=== PATIENT | female | born 1970 | race Caucasian/White ===

== ENCOUNTER 2022-02-19 15:00 | Inpatient (IN) | payer BC ==
[~2022-02-19] VITALS: Ht 172 cm; Wt 113.6 kg
[2022-02-19] MEDS ORDERED: ASPIRIN 81 MG CHEW (CHILDREN'S ASA) ONE (15:21)
[2022-02-19] MEDS ORDERED: dilTIAZem DRIP PRE-MIX 125 ML IV ONE (15:23)
[2022-02-19] MEDS ORDERED: meTOprolol 5 MG/5 ML (LOPRESSOR) VIAL ONE ×2 (15:24→15:32)
[2022-02-19] MEDS ORDERED: meTOprolol 5 MG/5 ML (LOPRESSOR) VIAL IV ONE ×2 (15:30→16:45)
[2022-02-19] MEDS ORDERED: dilTIAZem DRIP PRE-MIX 125 ML IV SCH (15:30)
[2022-02-19] MEDS ORDERED: ASPIRIN 81 MG CHEW (CHILDREN'S ASA) PO ONE (15:30)
[2022-02-19 15:41] LABS: ALBUMIN 4.3 GM/DL (3.2-4.5); POTASSIUM 3.8 MMOL/L (3.6-5.0)
[2022-02-19 15:42] LABS: CALCIUM 9.9 MG/DL (8.5-10.1)
[2022-02-19 15:45] LABS: BILIRUBIN,TOTAL 0.2 MG/DL (0.1-1.0)
[2022-02-19] MEDS ORDERED: APIXABAN 5 MG (ELIQUIS) TABLET PO ONE (15:45)
[2022-02-19 15:47] LABS: BASOPHILS # (AUTO) 0.1 10^3/uL (0.0-0.1); BASOPHILS % (AUTO) 1 % (0-10); CREATININE SERUM 0.89 MG/DL (0.60-1.30); EOSINOPHILS # (AUTO) 0.4 10^3/uL (0.0-0.3); EOSINOPHILS % (AUTO) 3 % (0-10); HEMATOCRIT 47 % (35-52); INR 0.8 (0.8-1.4); LYMPHOCYTES # (AUTO) 3.3 X 10^3 (1.0-4.0); LYMPHOCYTES % (AUTO) 31 % (12-44); MEAN CORPUSCULAR HEMOGLOBIN 29 pg (25-34); MEAN CORPUSCULAR HGB CONC 34 g/dL (32-36); MEAN CORPUSCULAR VOLUME 85 fL (80-99); MEAN PLATELET VOLUME 11.7 fL (9.0-12.2); MONOCYTES # (AUTO) 0.7 X 10^3 (0.0-1.0); MONOCYTES % (AUTO) 7 % (0-12); NEUTROPHILS # (AUTO) 6.1 X 10^3 (1.8-7.8); NEUTROPHILS % (AUTO) 58 % (42-75); PLATELET COUNT 381 10^3/uL (130-400); PROTHROMBIN TIME PATIENT 11.8 SEC (12.2-14.7); WHITE BLOOD COUNT 10.6 10^3/uL (4.3-11.0)
[2022-02-19 15:49] LABS: MAGNESIUM 1.8 MG/DL (1.6-2.4)
--- NOTE | 2022-02-19 15:55 | ED Chest Pain ---
General Stated Complaint: HX AFIB/NAUSEA/LIGHTHEADED Source: patient Exam Limitations: no limitations History of Present Illness Date Seen by Provider: February 19, 2022 Time Seen by Provider: 15:12 Initial Comments Here with report of fast heart rate and shortness of breath with feeling of palpitation and lightheadedness over the last 1 and half to 2 hours. Patient has history of fast heart rate apparently previously. She did have to wear Holter monitor for a few weeks. She was started on metoprolol at that time and the Holter monitor caught a few events but it appeared the metoprolol was working okay. She missed 1 dose of her metoprolol yesterday. She took it today. She has had had echocardiogram and sleep study with results pending in [place], [place]. She follows with Dr. Mora there. She does smoke but denies alcohol or drugs. She has had some nausea and dry mouth with this but denies vomiting, sweating or significant weakness. She has never had sustained event like this before. She states that she has been eating when things happened and when she went to her son's house. She and her rested and waited there for a little bit but things became sustained and she started getting short of breath so ultimately elected to come to the emergency department. On arrival here, heart rate 140s to 250s or higher on monitor. Timing/Duration: 1-3 hours, constant, getting worse Severity/Quality: moderate Location: central (Palpitations) Radiation: no radiation Prior CP/Workup: echocardiography Modifying Factors: improves with other (No aggravating or relieving factors) ASA po WELDING TESTER: No NTG SL WELDING TESTER: No Associated Symptoms: No abdominal pain, No back pain, No diaphoresis, No dizziness, No fever/chills; nausea/vomiting, shortness of breath; No weakness Allergies and Home Medications Allergies Coded Allergies: No Known Drug Allergies (Unverified , 02/19/22) Patient Home Medication List Home Medication List Reviewed: Yes (Toprol-XL 25 mg p.o. [place]) Review of Systems Review of Systems Constitutional: No chills, No fever EENTM: No Symptoms Reported Respiratory: Denies Cough; Shortness of Air Cardiovascular: Chest Pain, Irregular Heart Rate, Palpitations Gastrointestinal: Denies Abdominal Pain; Nausea; Denies Vomiting Genitourinary: No Symptoms Reported Musculoskeletal: no symptoms reported Skin: no symptoms reported Psychiatric/Neurological: Denies Headache, Denies Weakness All Other Systems Reviewed Negative Unless Noted: Yes Past Zwyenlb-[id number]-[id number] Hx Patient Social History Tobacco Use?: Yes Tobacco type used: Cigarettes Use of E-Cig and/or Vaping dev: No Substance use?: No Alcohol Use?: No Past Medical History Surgeries: Yes Orthopedic Respiratory: No Cardiac: Yes Irregular Heartbeat Neurological: No Gastrointestinal: Yes Family Medical History Reviewed and Corrections made Heart Disease Physical Exam Vital Signs Vital Signs - First Documented 02/19/22 15:05 Temp 36.6 Pulse 161 Resp 20 B/P (MAP) 175/89 (117) Pulse Ox 99 O2 Delivery Room Air Capillary Refill : Height, Weight, BMI Height: '" Weight: lbs. oz. kg; BMI Method: General Appearance: WD/WN, Moderate Distress HEENT: PERRL/EOMI, Pharynx Normal Neck: Non Tender, Supple Respiratory: Lungs Clear, Normal Breath Sounds Cardiovascular: No Murmur, Irregularly Irregular, Tachycardia (Rates up to 250 and above noted on monitor) Gastrointestinal: Non Tender, Soft Extremity: Normal Range of Motion, Non Tender Neurologic/Psychiatric: Alert, Oriented x3 Skin: Normal Color, Warm/Dry Progress/Results/Core Measures Results/Orders Lab Results Laboratory Tests Test 02/19/22 15:18 Range/Units White Blood Count 10.6 4.3-11.0 10^3/uL Red Blood Count 5.55 H 3.80-5.11 10^6/uL Hemoglobin 16.0 11.5-16.0 g/dL Hematocrit 47 35-52 % Mean Corpuscular Volume 85 80-99 fL Mean Corpuscular Hemoglobin 29 25-34 pg Mean Corpuscular Hemoglobin Concent 34 32-36 g/dL Red Cell Distribution Width 13.5 10.0-14.5 % Platelet Count 381 130-400 10^3/uL Mean Platelet Volume 11.7 9.0-12.2 fL Immature Granulocyte % (Auto) 0 % Neutrophils (%) (Auto) 58 42-75 % Lymphocytes (%) (Auto) 31 12-44 % Monocytes (%) (Auto) 7 0-12 % Eosinophils (%) (Auto) 3 0-10 % Basophils (%) (Auto) 1 0-10 % Neutrophils # (Auto) 6.1 1.8-7.8 X 10^3 Lymphocytes # (Auto) 3.3 1.0-4.0 X 10^3 Monocytes # (Auto) 0.7 0.0-1.0 X 10^3 Eosinophils # (Auto) 0.4 H 0.0-0.3 10^3/uL Basophils # (Auto) 0.1 0.0-0.1 10^3/uL Immature Granulocyte # (Auto) 0.0 0.0-0.1 10^3/uL Prothrombin Time 11.8 L 12.2-14.7 SEC INR Comment 0.8 0.8-1.4 Activated Partial Thromboplast Time 26 24-35 SEC Sodium Level 138 135-145 MMOL/L Potassium Level 3.8 3.6-5.0 MMOL/L Chloride Level 105 98-107 MMOL/L Carbon Dioxide Level 18 L 21-32 MMOL/L Anion Gap 15 H 5-14 MMOL/L Blood Urea Nitrogen 10 7-18 MG/DL Creatinine 0.89 0.60-1.30 MG/DL Estimat Glomerular Filtration Rate 78 BUN/Creatinine Ratio 11 Glucose Level 194 H 70-105 MG/DL Calcium Level 9.9 8.5-10.1 MG/DL Corrected Calcium 9.7 8.5-10.1 MG/DL Magnesium Level 1.8 1.6-2.4 MG/DL Total Bilirubin 0.2 0.1-1.0 MG/DL Aspartate Amino Transf (AST/SGOT) 14 5-34 U/L Alanine Aminotransferase (ALT/SGPT) 11 0-55 U/L Alkaline Phosphatase 116 40-136 U/L Myoglobin 49.2 10.0-92.0 NG/ML Troponin I < 0.028 <0.028 NG/ML Total Protein 8.0 6.4-8.2 GM/DL Albumin 4.3 3.2-4.5 GM/DL My Orders Orders - JONAS YO MD Diltiazem Injection (Cardizem Injection) (02/19/22 15:17) Aspirin Chewable Tablet (Baby Aspirin Ch (02/19/22 15:21) Diltiazem Drip Pre-Mix (Cardizem Drip Pr (02/19/22 15:23) Metoprolol Tartrate Injection (Lopressor (02/19/22 15:24) Cbc With Automated Diff (5/14/22 15:) Magnesium (02/19/22:27) Chest 1 View, Ap/Pa Only (02/19/22:) Ekg Tracing (02/19/22:) Comprehensive Metabolic Panel (02/19/22:) Myoglobin Serum (02/19/22:) Protime With Inr (02/19/22:) Partial Thromboplastin Time (02/19/22:) O2 (02/19/22:) Monitor-Rhythm Ecg Trace Only (02/19/22:) Lipid Panel (02/20/22 06:00) Ed Iv/Invasive Line Start (02/19/22:) Troponin I [place] (02/19/22:) Aspirin Chewable Tablet (Baby Aspirin Ch (02/19/22 15:30) Diltiazem Drip Pre-Mix (Cardizem Drip Pr (02/19/22 15:30) Diltiazem Injection (Cardizem Injection) (02/19/22 15:30) Metoprolol Tartrate Injection (Lopressor (02/19/22 15:30) Metoprolol Tartrate Injection (Lopressor (02/19/22 15:32) Apixaban Tablet (Eliquis Tablet) (02/19/22 15:45) Ns Iv 1000 Ml (Sodium Chloride 0.9%) (02/19/22 16:15) Ns Iv 1000 Ml (Sodium Chloride 0.9%) (02/19/22 16:03) Metoprolol Tartrate Injection (Lopressor (02/19/22 16:45) Ed Admission (Communication) (02/19/22 16:48) Medications Given in ED Current Medications Medications Dose Ordered Sig/Michael Route Start Time Stop Time Status Last Admin Dose Admin Apixaban 5 mg ONCE ONCE PO 02/19/22 15:45 02/19/22 15:46 DC 02/19/22 15:50 5 MG Aspirin 324 mg ONCE ONCE PO 02/19/22 15:30 02/19/22 15:31 DC 02/19/22 15:22 324 MG Diltiazem HCl 20 mg ONCE ONCE IVP 02/19/22 15:30 5/14/22 15:31 DC 02/19/22 15:22 20 MG Metoprolol Tartrate 5 mg ONCE ONCE IV 02/19/22 15:30 02/19/22 15:31 DC 02/19/22 15:34 5 MG Metoprolol Tartrate 5 mg ONCE ONCE IV 02/19/22 16:45 02/19/22 16:46 DC 02/19/22 15:25 5 MG Sodium Chloride 1,000 ml @ 150 mls/hr Q6H40M ONCE IV 02/19/22 16:15 02/19/22 22:54 02/19/22 16:15 150 MLS/HR Vital Signs/I&O 02/19/22 15:05 Temp 36.6 Pulse 161 Resp 20 B/P (MAP) 175/89 (117) Pulse Ox 99 O2 Delivery Room Air Progress Progress Note : Progress Note Seen and evaluated. IV, labs, EKG and chest x-ray ordered. 1517: I did make contact with Dr. Herring and he will see the patient in the emergency department. Cardizem 20 mg IV ordered as well as normal saline 1 L bolus. We did followed by Ivan with 5 mg of metoprolol IV. 1535: Dr Herring is here evaluating patient. He has been here for several minutes. We will go ahead and do another dose of metoprolol and then get repeat EKG. Initial abnormal findings on EKG seem to be rate dependent and likely related to bundle branch block. I do not believe she is having as STEMI at this point nor does he. It is very likely that her troponin will be bumped given the extreme high rate from the heart noted earlier. 1545 patient will require admission to the ICU. We have initiated Cardizem drip at 15 and that has been increased to 20 mg/h. Dr Herring will see patient in consult. Patient to be admitted to hospitalist. We are pending labs currently. Monitor patient. Eliquis 5 mg p.o. ordered. 1602: We will decrease Cardizem to 15 mg/h as her blood pressure is getting soft and well continue IV fluid normal saline at 150 mL an hour. Monitor patient. 1644: I did discuss the case with Dr. Pryor. He accepts patient for admission to the ICU with Dr Herring on consult. Overall she is doing a little better now. All findings and concerns discussed with patient and family who agree with plan. Initial ECG Impression Date: February 19, 2022 Initial ECG Impression Time: 15:12 Initial ECG Rate: 141 Initial ECG Rhythm: A Fib/Flutter Initial ECG Comparisson: No Previous ECG Available Comment Ectopic atrial tachycardia with likely atrial fibrillation. Right bundle branch block. Right axis deviation. Does have some elements of QRS widening and ST elevation that are likely rate dependent. Discussed with arc welder apprentice and reviewed with arc welder apprentice. Interpreted by me. EKG : EKG Time: 15:35 Rate: 124 Rhythm: A Fib/Flutter ECG Impression: Atrial Fibrillation w/RVR Comment Atrial fibrillation with rapid ventricular response at rate of 124. ST depression noted. No ST elevation. Bundle branch block noted earlier seems to be improved. Reviewed with cardiology. Interpreted by me. Diagnostic Imaging Diagonstic Imaging: Xray Plain Films/CT/US/NM/MRI: chest Comments [facility]. [place], [place] NAME: [facility] REC#: [id number] PT STATUS: REG ER : 1970 PHYSICIAN: JONAS YO MD ADMIT DATE: 02/19/22/ER Signed Date of Exam:02/19/22 CHEST 1 VIEW, AP/PA ONLY INDICATION: Chest pain. COMPARISON: None available. FINDINGS: The lungs appear clear without focal infiltrate or consolidation. There are no findings of an effusion. There is no evidence of a pneumothorax. Heart size and mediastinal contours appear appropriate. Pulmonary vascularity appears within normal limits. There is no acute or suspicious osseous abnormality demonstrated. IMPRESSION: No radiographic evidence of an acute cardiopulmonary process. Dictated by: Dictated on workstation # [id number] Dict: 02/19/22 161 Trans: 02/19/221615 [facility] [id number] Interpreted by: QUINTIN SKY MD Electronically signed by: QUINTIN SKY MD 02/19/221615 Departure Communication (Admissions) Time/Spoke to Admitting Phy: 16:46 Time/Spoke to Consulting Phy: 15:17 Impression Primary Impression: Atrial fibrillation with RVR Disposition: ADMITTED INPATIENT Condition: Stable Admissions Decision to Admit Reason: Admit from ER (General) Decision to Admit/Date: February 19, 2022 Time/Decision to Admit Time: 16:44 Departure-Patient Inst. Referrals: NO,LOCAL PHYSICIAN (PCP/Family) Primary Care Physician JONAS YO MD February 19, 2022 15:55
[2022-02-19] MEDS ORDERED: NS IV 1000 ML 1,000 ML IV STA (16:03)
[2022-02-19] MEDS ORDERED: NS IV 1000 ML 1,000 ML IV ONE (16:15)
--- NOTE | 2022-02-19 16:18 | Diagnostic Imaging Report ---
INDICATION: Chest pain. COMPARISON: None available. FINDINGS: The lungs appear clear without focal infiltrate or consolidation. There are no findings of an effusion. There is no evidence of a pneumothorax. Heart size and mediastinal contours appear appropriate. Pulmonary vascularity appears within normal limits. There is no acute or suspicious osseous abnormality demonstrated. IMPRESSION: No radiographic evidence of an acute cardiopulmonary process. Dictated by: Dictated on workstation # [id number]
--- NOTE | 2022-02-19 17:17 | Consultation-Cardiology ---
HPI-Cardiology Cardiology Consultation: Date of Consultation 02/19/22 Time Seen by a Provider: 15:30 Date of Admission Attending Physician Yaquelin Pryor MD Admitting Physician No,Local Physician Consulting Physician LEATHA GREEN MD, MA, FACP, FACC, FSCAI, CCDS HPI: Chief Complaint: Palpitations 52 yo woman who has had intermittent palpitations for several months and was recently placed on beta-blockers by her daycare director Dr Mora. Omitted one dose and came in today with sudden onset of palp that consisted of a feeling of rapid, irreg heart rate that was scaring her. Does not report cp. Did have dizziness but no kiara syncope. Does not report swelling. Denies n/v/d. Denies shortness of breath except during palpitations Review of Systems-Cardiology Review of Systems Constitutional: No malaise, No tiredness, No weight loss, No weight gain Eyes: No vision change Ears/Nose/Throat: No ear discharge, No nasal drainage, No recent hearing loss Respiratory: As described under HPI Cardiovascular: As described under HPI Gastrointestinal: As described under HPI Genitourinary: No dysuria, No hematuria, No urine frequency changes Musculoskeletal: No back pain Skin: No rash, No ulcerations Psychiatric/Neurological: No seizure, No focal weakness, No syncope Hematologic: No bleeding abnormalities All Other Systems Reviewed Negative Unless Noted: Yes [id number]-[id number] Hx Patient Social History Smoking Status: Current Everyday Smoker Alcohol Use?: No Pt feels they are or have been: No Tobacco type used: Cigarettes Past Medical History PMH As described under Assessment. Family Medical History Family Medical History: She report that her mother has had palpitation and cardiac valve problems, details unknown Allergies and Home Medications Allergies Coded Allergies: No Known Drug Allergies (Unverified , 02/19/22) Patient Home Medication List Home Medication List Reviewed: Yes Physical Exam-Cardiology Physical Exam Vital Signs/I&O 02/19/22 15:05 Temp 36.6 Pulse 161 Resp 20 B/P (MAP) 175/89 (117) Pulse Ox 99 O2 Delivery Room Air Capillary Refill : Less Than 3 Seconds Constitutional: AAO x 3, well-developed HEENT: EOMI, hearing is well preserved; No xanthelasmas are seen Neck: carotid pulses are 2 + bilaterally, with good upstrokes Respiratory: No accessory muscle use; other (good, bilateral air entry) Cardiovascular: irregularly irregular, S1 and S2, systolic murmur (soft DAHLIA at card base) Gastrointestinal: soft; No guarding, No rebound; audible bowel sounds Extremities: No clubbing, No cyanosis, No significant edema Neurologic/Psychiatric: oriented x 3, other (moves all limbs equally) Skin: No rash on exposed areas, No ulcerations on exposed areas Data Review Labs Laboratory Tests 02/19/22 15:18: White Blood Count 10.6, Red Blood Count 5.55H, Hemoglobin 16.0, Hematocrit 47, Mean Corpuscular Volume 85, Mean Corpuscular Hemoglobin 29, Mean Corpuscular He moglobin Concent 34, Red Cell Distribution Width 13.5, Platelet Count 381, Mean Platelet Volume 11.7, Immature Granulocyte % (Auto) 0, Neutrophils (%) (Auto) 58, Lymphocytes (%) (Auto) 31, Monocytes (%) (Auto) 7, Eosinophils (%) (Auto) 3, Basophils (%) (Auto) 1, Neutrophils # (Auto) 6.1, Lymphocytes # (Auto) 3.3, Monocytes # (Auto) 0.7, Eosinophils # (Auto) 0.4H, Basophils # (Auto) 0.1, Immature Granulocyte # (Auto) 0.0, Prothrombin Time 11.8L, INR Comment 0.8, Acti vated Partial Thromboplast Time 26, Sodium Level 138, Potassium Level 3.8, Chloride Level 105, Carbon Dioxide Level 18L, Anion Gap 15H, Blood Urea Nitrogen 10, Creatinine 0.89, Estimat Glomerular Filtration Rate 78, BUN/Creatinine Ratio 11, Glucose Level 194H, Calcium Level 9.9, Corrected Calcium 9.7, Magnesium Level 1.8, Total Bilirubin 0.2, Aspartate Amino Transf (AST/SGOT) 14, Alanine Aminotransferase (ALT/SGPT) 11, Alkaline Phosphatase 116, Myoglobin 49.2, Troponin I < 0.028, Total Protein 8.0, Albumin 4.3 A/P-Cardiology Assessment/Admission Diagnosis PAF vs MAT Chronic tobacco use (smokes) Elevated BMI Discussion and Recomendations * Oral apixaban * iv dilt * Monitor labs * Admit to tele for overnight observation * Discussed in detail with her and her family Clinical Quality Measures AMI/AHF: ASA po Prior to arrival: LEATHA Oconnell MD FACP FACC CCDS February 19, 2022 17:17
[2022-02-19] MEDS ORDERED: meTOprolol 5 MG/5 ML (LOPRESSOR) VIAL IV PRN (18:15)
[2022-02-19] MEDS ORDERED: ONDANSETRON 4 MG/2 ML (SDV) Z0FRAN IV PRN (18:15)
[2022-02-19] MEDS ORDERED: ONDANSETRON 4 MG (ZOFRAN) ORAL DISSOLVE TAB PO PRN (18:15)
[2022-02-19] MEDS ORDERED: ANTACID SUSP 30 ML UDC (MYLANTA) PO PRN (18:15)
[2022-02-19] MEDS ORDERED: ACETAMINOPHEN 325 MG TABLET PO PRN (18:15)
[2022-02-19] MEDS ORDERED: polyethylene glycoL POWDER 17 GM (MIRALAX) PACK PO PRN (18:15)
[2022-02-19] MEDS ORDERED: diphenhydrAMINE 25 MG TAB (BENADRYL) PO PRN (18:15)
[2022-02-19] MEDS ORDERED: MELATONIN 3 MG TABLET PO PRN (18:15)
[2022-02-19] MEDS: dilTIAZem DRIP PRE-MIX 125 ML IV SCH ×2 (18:17→21:26)
[2022-02-19] MEDS: NS IV 1000 ML 1,000 ML IV SCH ×2 (18:17→21:25)
--- NOTE | 2022-02-19 18:50 | Tele-ICU Progress Note ---
Subjective Date Seen by a Provider: February 19, 2022 Time Seen by a Provider: 18:50 Sepsis Event Evaluation Height, Weight, BMI Height: '" Weight: lbs. oz. kg; 37.79 BMI Method: Exam Exam Patient acknowledged, consented, and participated in this virtual visit which was conducted using real time audio/video Vital Signs Date Time Temp Pulse Resp B/P (MAP) Pulse Ox O2 Delivery O2 Flow Rate FiO2 02/19/22 18:09 Room Air 02/19/22 17:52 144 02/19/22 17:47 161 21 117/78 92 Room Air 02/19/22 17:45 36.3 141 26 121/74 95 Room Air 02/19/22 15:05 36.6 161 20 175/89 (117) 99 Room Air Height & Weight Height: '" Weight: lbs. oz. kg; 37.79 BMI Method: General Appearance: WD/WN, Moderate Distress HEENT: PERRL/EOMI, Pharynx Normal Neck: Non Tender, Supple Respiratory: Lungs Clear, Normal Breath Sounds Cardiovascular: No Murmur, Irregularly Irregular, Tachycardia (Rates up to 250 and above noted on monitor) Capillary Refill: Less Than 3 Seconds Extremity: Normal Range of Motion, Non Tender Neurologic/Psychiatric: Alert, Oriented x3 Skin: Normal Color, Warm/Dry Results Lab Laboratory Tests 02/19/22 15:18 JEFRY CHASE MD February 19, 2022 18:50
[2022-02-19] MEDS: APIXABAN 5 MG (ELIQUIS) TABLET PO SCH (19:59)
[2022-02-20 04:38] LABS: BASOPHILS # (AUTO) 0.1 10^3/uL (0.0-0.1); BASOPHILS % (AUTO) 1 % (0-10); EOSINOPHILS # (AUTO) 0.3 10^3/uL (0.0-0.3); EOSINOPHILS % (AUTO) 3 % (0-10); HEMATOCRIT 39 % (35-52); HEMOGLOBIN 13.1 g/dL (11.5-16.0); LYMPHOCYTES % (AUTO) 33 % (12-44); MEAN CORPUSCULAR HEMOGLOBIN 29 pg (25-34); MEAN CORPUSCULAR HGB CONC 33 g/dL (32-36); MEAN CORPUSCULAR VOLUME 86 fL (80-99); MEAN PLATELET VOLUME 11.8 fL (9.0-12.2); MONOCYTES # (AUTO) 0.6 10^3/uL (0.0-1.0); MONOCYTES % (AUTO) 7 % (0-12); NEUTROPHILS % (AUTO) 55 % (42-75); PLATELET COUNT 293 10^3/uL (130-400); WHITE BLOOD COUNT 9.1 10^3/uL (4.3-11.0)
[2022-02-20 04:44] LABS: POTASSIUM 3.9 MMOL/L (3.6-5.0)
[2022-02-20 04:45] LABS: CALCIUM 8.8 MG/DL (8.5-10.1)
[2022-02-20 04:50] LABS: CREATININE SERUM 0.72 MG/DL (0.60-1.30); PHOSPHORUS 3.1 MG/DL (2.3-4.7)
[2022-02-20 04:52] LABS: MAGNESIUM 1.8 MG/DL (1.6-2.4)
[2022-02-20] MEDS: NS IV 1000 ML 1,000 ML IV SCH (04:59)
[2022-02-20] MEDS ORDERED: POTASSIUM CL 10MEQ/50ML IVPB 50 ML IV SCH ×2 (06:00)
[2022-02-20] MEDS ORDERED: KCL 20 MEQ TAB (K-DUR) PO SCH ×2 (06:00)
[2022-02-20] MEDS ORDERED: MAGNESIUM 1 GM/100 ML IVPB 100 ML IV SCH ×2 (06:00)
[2022-02-20] MEDS: APIXABAN 5 MG (ELIQUIS) TABLET PO SCH (08:23)
[2022-02-20] MEDS ORDERED: NS IV 1000 ML 1,000 ML IV SCH (09:24)
[2022-02-20] MEDS ORDERED: NICOTINE 14 MG (NICODERM) PATCH TD ONE (09:30)
--- NOTE | 2022-02-20 09:54 | Tele-ICU Progress Note ---
Subjective Date Seen by a Provider: February 20, 2022 Time Seen by a Provider: 09:49 Subjective/Events-last exam She is admitted with flutter sensation in the chest associated with mild discomfort and she is found to have atrial fibrillation with rapid ventricular rate. She is started on apixaban and IV diltiazem. Last night she converted to sinus rhythm. She is currently has a heart rate of 81/min. Denies any chest pain. Apparently she was noted to have atrial fibrillation shock. When she had a 21-day Holter up in [place]. She was placed on metoprolol 25 mg twice daily at that time. Sepsis Event Evaluation Height, Weight, BMI Height: '" Weight: lbs. oz. kg; 37.79 BMI Method: Exam Exam Patient acknowledged, consented, and participated in this virtual visit which was conducted using real time audio/video Vital Signs Date Time Temp Pulse Resp B/P (MAP) Pulse Ox O2 Delivery O2 Flow Rate FiO2 02/20/22 09:00 70 12 166/86 94 Room Air 02/20/22 08:47 Room Air 02/20/22 08:00 54 10 139/73 93 Room Air 02/20/22 07:47 36.8 02/20/22 07:00 61 18 167/86 91 Room Air 02/20/22 07:00 72 02/20/22 06:00 69 15 158/82 95 Room Air 02/20/22 05:00 67 21 95 Room Air 02/20/22 04:30 Room Air 02/20/22 04:30 37.0 02/20/22 04:00 60 22 158/85 95 Room Air 02/20/22 03:00 58 17 148/70 94 Room Air 02/20/22 02:00 57 26 128/77 93 Room Air 02/20/22 01:11 Room Air 02/20/22 01:00 67 02/20/22 01:00 68 17 127/62 93 Room Air 02/20/22 00:00 36.7 02/20/22 00:00 61 19 125/77 94 Room Air 02/19/22 23:00 92 16 111/66 94 Room Air 02/19/22 22:00 121 16 127/96 94 Room Air 02/19/22 21:00 99 16 114/72 94 Room Air 02/19/22 20:30 36.5 02/19/22 20:30 Room Air 02/19/22 20:00 92 23 123/89 96 Room Air 02/19/22 19:00 138 02/19/22 19:00 98 25 138/73 96 Room Air 02/19/22 18:09 Room Air 02/19/22 17:52 144 02/19/22 17:47 161 21 117/78 92 Room Air 02/19/22 17:45 36.3 141 26 121/74 95 Room Air 02/19/22 17:22 36.6 116 20 116/57 95 Room Air 02/19/22 15:05 36.6 161 20 175/89 (117) 99 Room Air I & O 02/20/22 07:00 Intake Total 1680 ml Balance 1680 ml Height & Weight Height: '" Weight: lbs. oz. kg; 37.79 BMI Method: General Appearance: WD/WN, Moderate Distress HEENT: PERRL/EOMI, Pharynx Normal Neck: Non Tender, Supple Respiratory: Lungs Clear, Normal Breath Sounds Cardiovascular: No Murmur, Irregularly Irregular, Tachycardia (Rates up to 250 and above noted on monitor) Capillary Refill: Less Than 3 Seconds Extremity: Normal Range of Motion, Non Tender Neurologic/Psychiatric: Alert, Oriented x3 Skin: Normal Color, Warm/Dry Other comments PE PER RN Results Lab Laboratory Tests 02/19/22 15:18 02/20/22 04:25 Assessment/Plan Assessment/Plan fibrillation with rapid ventricular rate now controlled and converted to sinus rhythm. 2. Moderate obesity. Recommendations 1. Apixaban and antiarrhythmic drugs per cardiology 2. From critical care point of view she may be transferred to telemetry unit or discharged if okay with cardiology service. 3. I made a video visit and discussed with the patient and APPEALS REFEREE. Critical Care: Critically Ill Patient Time spent with patient (mins): 20 JEFRY CHASE MD February 20, 2022 09:54
--- NOTE | 2022-02-20 15:30 | Progress Note - Cardiology ---
Cardiology SOAP Progress Note Subjective: No cp or palp or syncope or shortness of breath No n/v/d No focal weakness Feels well and wishes to go home Objective: I&O/Vital Signs 02/20/22 02/20/22 02/20/22 02/20/22 04:00 04:30 04:30 05:00 Temp 37.0 Pulse 60 67 Resp 22 21 B/P (MAP) 158/85 Pulse Ox 95 95 O2 Delivery Room Air Room Air Room Air 02/20/22 02/20/22 02/20/22 02/20/22 06:00 07:00 07:00 07:47 Temp 36.8 Pulse 69 72 61 Resp 15 18 B/P (MAP) 158/82 167/86 Pulse Ox 95 91 O2 Delivery Room Air Room Air 02/20/22 02/20/22 02/20/22 02/20/22 08:00 08:47 09:00 10:00 Pulse 54 70 81 Resp 10 12 16 B/P (MAP) 139/73 166/86 162/78 Pulse Ox 93 94 95 O2 Delivery Room Air Room Air Room Air Room Air 02/20/22 02/20/22 02/20/22 02/20/22 11:00 12:00 12:00 12:47 Temp 36.6 Pulse 69 78 94 Resp 21 26 B/P (MAP) O2 Delivery Room Air Room Air 02/20/22 02/20/22 13:00 14:45 Pulse 76 Resp 24 B/P (MAP) 180/96 O2 Delivery Room Air Room Air 02/20/22 00:00 Intake Total 1240 ml Balance 1240 ml Constitutional: AAO x 3, well-developed Respiratory: No accessory muscle use; other (good, bilateral air entry) Cardiovascular: regular rate-rhythm, S1 and S2, systolic murmur (soft DAHLIA at card base) Gastrointestional: soft; No guarding, No rebound; audible bowel sounds Extremities: No clubbing, No cyanosis, No significant edema Neurologic/Psychiatric: oriented x 3, other (moves all limbs equally) Skin: No rash on exposed areas, No ulcerations on exposed areas Results/Procedures: Labs Laboratory Tests 02/20/22 04:25: White Blood Count 9.1, Red Blood Count 4.56, Hemoglobin 13.1, Hematocrit 39, Mean Corpuscular Volume 86, Mean Corpuscular Hemoglobin 29, Mean Corpuscular Hemoglobin Concent 33, Red Cell Distribution Width 13.6, Platelet Count 293, Mean Platelet Volume 11.8, Immature Granulocyte % (Auto) 0, Neutrophils (%) (Auto) 55, Lymphocytes (%) (Auto) 33, Monocytes (%) (Auto) 7, Eosinophils (%) (Auto) 3, Basophils (%) (Auto) 1, Neutrophils # (Auto) 5.0, Lymphocytes # (Auto) 3.0, Monocytes # (Auto) 0.6, Eosinophils # (Auto) 0.3, Basophils # (Auto) 0.1, Immature Granulocyte # (Auto) 0.0, Sodium Level 141, Potassium Level 3.9, Chloride Level 112H, Carbon Dioxide Level 19L, Anion Gap 10, Blood Urea Nitrogen 7, Creatinine 0.72, Estimat Glomerular Filtration Rate 101, BUN/Creatinine Ratio 10, Glucose Level 129H, Calcium Level 8.8, Phosphorus Level 3.1, Magnesium Level 1.8, Triglycerides Level 114, Cholesterol Level 121, LDL Cholesterol Direct 80, VLDL Cholesterol 23, HDL Cholesterol 32L, Thyroid Stimulating Hormone (TSH) 3.38 02/20/22 10:45: Glucometer 131H Microbiology 02/19/22 MRSA Screen - Final, Complete MRSA not isolated Laboratory Tests 02/19/22 15:18 02/20/22 04:25 A/P: Assessment: PAF vs MAT - NSR on 02/20/22 Chronic tobacco use (smokes) Elevated BMI TSH normal (3.38) on 02/20/22 Hypertension and LVH - Echo of 02/20/22: LVEF 65-70%, mild conc LVH Impaired fasting glucose vs borderline DM II Plan: * Oral apixaban * Oral long-acting dilt * Rationale and pros and potential side effects of the discharge reviewed with her in detail * Advised eval for DM II and f/u on arrhythmia and hypertension with pcp and her boxing promoter RAFAEL * Advised eval for sleep apnea * Advised smoking cessation * Discussed in detail with her and her family Clinical Quality Measures AMI/AHF: ASA po Prior to arrival: LEATHA Oconnell MD FACP [facility] February 20, 2022 15:30
[2022-02-20] MEDS ORDERED: APIX5TAB PO (15:32)
[2022-02-20] MEDS ORDERED: DILT300C52 PO (15:32)
--- NOTE | 2022-02-20 15:45 | Discharge Summary ---
Discharge Summary Hospital Course Problems/Dx: (1) Atrial fibrillation with RVR Status: Acute Hospital Course Date of Admission: February 19, 2022 at 16:49 Admission Diagnosis : AFib with RVR Family Physician/Provider: Antonieta Drummond Physician Date of Discharge: 02/20/22 Discharge Diagnosis: AFib with RVR Hospital Course: Sylvie Nichols is a 52 year old female who presented with palpitations and was admitted with AFib with RVR. Cardiology was consulted and assisted with her care. She was started on IV Cardizem and her heart rate improved. She subsequently converted to normal sinus rhythm. She was also started on Eliquis for stroke prevention. She had an echo which showed normal ejection fraction and was otherwise unremarkable. She was transitioned to oral Cardizem. She should follow up with her [employer]ist in about a week. She was discharged home in stable condition. She was also encouraged to discontinue tobacco use. Labs and Pending Lab Test: Laboratory Tests 02/20/22 04:25: White Blood Count 9.1, Red Blood Count 4.56, Hemoglobin 13.1, Hematocrit 39, Mean Corpuscular Volume 86, Mean Corpuscular Hemoglobin 29, Mean Corpuscular Hemoglobin Concent 33, Red Cell Distribution Width 13.6, Platelet Count 293, Mean Platelet Volume 11.8, Immature Granulocyte % (Auto) 0, Neutrophils (%) (Auto) 55, Lymphocytes (%) (Auto) 33, Monocytes (%) (Auto) 7, Eosinophils (%) (Auto) 3, Basophils (%) (Auto) 1, Neutrophils # (Auto) 5.0, Lymphocytes # (Auto) 3.0, Monocytes # (Auto) 0.6, Eosinophils # (Auto) 0.3, Basophils # (Auto) 0.1, Immature Granulocyte # (Auto) 0.0, Sodium Level 141, Potassium Level 3.9, Chloride Level 112H, Carbon Dioxide Level 19L, Anion Gap 10, Blood Urea Nitrogen 7, Creatinine 0.72, Estimat Glomerular Filtration Rate 101, BUN/Creatinine Ratio 10, Glucose Level 129H, Mean Blood Glucose [Pending], Hemoglobin A1c [Pending], Calcium Level 8.8, Phosphorus Level 3.1, Magnesium Level 1.8, Triglycerides Level 114, Cholesterol Level 121, LDL Cholesterol Direct 80, VLDL Cholesterol 23, HDL Cholesterol 32L, Thyroid Stimulating Hormone (TSH) 3.38 02/20/22 10:45: Glucometer 131H Microbiology 02/19/22 MRSA Screen - Final, Complete MRSA not isolated Home Meds Active Assessment/Pt Instructions See instructions Discharge Planning: >30 minutes discharge planning Discharge Instructions Discharge Diet: Low Sodium Diet Activity as Tolerated: Yes Consultations Cardiology Discharge Physical Examination Vital Signs Vital Signs Date Time Temp Pulse Resp B/P (MAP) Pulse Ox O2 Delivery O2 Flow Rate FiO2 02/20/22 14:45 76 24 180/96 Room Air 02/20/22 12:00 36.6 02/20/22 10:00 95 General Appearance: No Apparent Distress, Obese HEENT: PERRL/EOMI, Pharynx Normal Respiratory: Lungs Clear, Normal Breath Sounds, No Respiratory Distress Cardiovascular: Regular Rate, Rhythm, No Edema, No Murmur Gastrointestinal: Normal Bowel Sounds, Non Tender, Soft Extremity: Normal Inspection, Non Tender, No Pedal Edema Skin: Normal Color, Warm/Dry Neurologic/Psychiatric: Alert, Oriented x3, No Motor/Sensory Deficits, Normal Mood/Affect Allergies: Coded Allergies: No Known Drug Allergies (Unverified , 02/19/22) Discharge Summary Date of Admission February 19, 2022 at 16:49 Date of Discharge Discharge Date: February 20, 2022 Discharge Time: 15:41 Admission Diagnosis AFib with RVR Consults/Procedures Consulations Cardiology Discharge Diagnosis (1) Atrial fibrillation with RVR Status: Acute Clinical Quality Measures AMI/AHF: ASA po Prior to arrival: CLARK Darling MD February 20, 2022 15:45
[2022-02-20 16:35] VITALS: BP 180/96
[2022-02-21] MEDS ORDERED: NICOTINE 14 MG (NICODERM) PATCH TD SCH (09:00)
[2022-02-21] MEDS ORDERED: PATCH REMOVAL TP SCH (09:00)
== END 2022-02-20 16:25 | disposition home or self-care (01) | DRG 310 ==
LOC: ER 15:02 → ICU 16:49
PROVIDERS: ADMIT Internal Medicine; ATTEND Internal Medicine
DX: I48.91 Unspecified atrial fibrillation (principal); I48.92 Unspecified atrial flutter; F17.210 Nicotine dependence, cigarettes, uncomplicated; I10 Essential (primary) hypertension; E66.9 Obesity, unspecified; Z68.38 Body mass index [BMI] 38.0-38.9, adult
CPT/HCPCS: 36415; 71045; 80048; 80053; 80061; 82947; 83036; 83735; 83874; 84100; 84443; 84484; 85025; 85610; 85730; 87081; 93005; 93041; 93306